=== PATIENT | female | born 1985 | race Two or more races ===

== ENCOUNTER 2016-08-04 06:01 | Day surgery (SDC) | payer OTHER ==
[~2016-08-04 06:01] MED LIST: IV START KIT ONE; LACTATED RINGERS 1,000 ML ONE
[2016-08-04] MEDS ORDERED: MIDAZOLAM HCL 1 MG/ML 2ML VIAL ONE (06:17)
[2016-08-04] MEDS ORDERED: LIDOCAINE 2% (PRES FREE) 5 ML VIAL ONE (06:17)
[2016-08-04] MEDS ORDERED: PROPOFOL 20 ML IV ONE (06:17)
[2016-08-04] MEDS ORDERED: FENTANYL 100 MCG/2 ML VIAL ONE (06:18)
[2016-08-04] MEDS ORDERED: SCOPOLAMINE 1.5 MG/72 HR 1 EACH PATCH TD ONE (07:08)
[2016-08-04] MEDS ORDERED: ONDANSETRON 4 MG/2ML 2 ML VIAL ONE (07:40)
[2016-08-04] MEDS ORDERED: OXYCODONE/ACETAMINOPHEN 5/325 MG TABLET PO PRN (07:47)
[2016-08-04] MEDS ORDERED: PROMETHAZINE HCL 25 MG/ML VIAL IM PRN (07:47)
[2016-08-04] MEDS ORDERED: ATROPINE SULFATE 0.4 MG/1 ML VIAL IV PRN (07:47)
[2016-08-04] MEDS ORDERED: ONDANSETRON 4 MG/2ML 2 ML VIAL IV PRN (07:47)
[2016-08-04] MEDS ORDERED: FENTANYL 100 MCG/2 ML VIAL IV PRN (07:47)
[2016-08-04] MEDS ORDERED: HYDROMORPHONE HCL 1 MG/ML SYRINGE IV PRN (07:47)
[2016-08-04] MEDS ORDERED: MEPERIDINE 25 MG/ML SYRINGE IV PRN (07:47)
[2016-08-04] MEDS ORDERED: IBUPROFEN 800 MG TABLET PO PRN (07:47)
[2016-08-04] MEDS ORDERED: NALOXONE HCL 0.4 MG/ML VIAL IV PRN (07:47)
--- NOTE | 2016-08-04 07:58 | PCMBPN ---
Brief Post Op Note: Date of Procedure: 08/04/16 Start Time: Preoperative Diagnosis: 1. abnormal vaginal bleeding from cervical stump Postoperative Diagnosis: 1. Same Procedure: electrocautery of endocervical canal Surgeon: Marc Aguilera Assist: Anesthesia: general, ms kam Findings: patulous cervix, uterus surgically absent, adnexa negative, vagina healthy, external genitalia healthy Condition: stable Complications: none IV Fluids: mLs of LR Urine Output: 50 mLs Estimated Blood Loss: less than 2cc mLs Tourniquet Time: N/A Specimens: N/A Implants: Drains: N/A patient tolerated procedure well and was returned to recovery room in stable condition.
[2016-08-04] MEDS ORDERED: LACTATED RINGERS 1,000 ML IV SCH ×2 (08:00→15:15)
[2016-08-04] MEDS ORDERED: KETOROLAC TROMETHAMINE 30 MG/ML 1 ML VIAL ONE (08:02)
--- NOTE | 2016-08-04 08:37 | OP ---
Nellie Pop [id number] PREOPERATIVE DIAGNOSIS: Abnormal vaginal bleeding from cervical stump. POSTOPERATIVE DIAGNOSIS: Abnormal vaginal bleeding from cervical stump. TONGUE BINDER: Dr. Marc Jolly PROCEDURE: Electrocautery of endocervical canal. ANESTHESIA: General anesthesia by Ms. Lyon. DESCRIPTION OF PROCEDURE: Dictation begins with the patient under general anesthesia. She was placed in the lithotomy position and the vagina was prepared with Betadine and draped in the usual manner. After a timeout was performed, exam under anesthesia revealed the external genitalia healthy, vagina healthy, cervix was pink and patulous, uterus surgically absent, adnexa negative. A duckbill speculum was inserted into the vagina gently. The anterior lip of the cervix was grasped with a single prong tenaculum. The cervix was sounded to 3 cm. Following this cautery of the endocervical canal was performed using a Bovie with a coag setting at 50 and a blend of 1. The entire endocervical os was cauterized with the Bovie and there was complete hemostasis after the procedure was performed. The single pronged tenaculum was removed. Estimated blood loss during the procedure was less than 2 mL and there was complete hemostasis at the end of the procedure. The duckbill speculum was then removed after complete hemostasis. Sponge and instrument count report is correct. The patient had been catheterized prior to the surgery of 50 mL of clear yellow urine. The patient tolerated the procedure well and was returned to recovery room in stable condition. FINAL DIAGNOSIS: Abnormal vaginal bleeding from cervical stump. Of note, pathology specimen submitted. JOB: [id number]
--- NOTE | 2016-08-04 08:41 | DS ---
Nellie Pop [id number] Nellie Pop is a 31-year-old female admitted with abnormal vaginal bleeding, the source being the cervical stump following previous hysterectomy. She underwent electrocautery of the endocervical os and canal and tolerated the procedure well. She was sent home in good condition and given Percocet as needed and advised office visit in one weeks time. Activities were explained to the patient prior to anesthesia. Also a urine culture will be sent for possible urinary tract infection although, patient is asymptomatic. FINAL DIAGNOSIS: Abnormal vaginal bleeding from cervical stump. JOB: [id number]
[2016-08-04 08:49] LABS: URINE BACTERIA FEW; URINE CRYSTALS MANY CaOx /hpf; URINE WBC 0-1 /hpf
[2016-08-04] MEDS ORDERED: IBUPROFEN 800 MG TABLET ONE (09:17)
[2016-08-04] MEDS ORDERED: LIDOCAINE 1% 2 ML VIAL ID PRN (15:03)
--- NOTE | 2016-08-09 13:22 | HP ---
Nellie Pop : 1985 DATE: 08/03/2016 HISTORY OF PRESENT ILLNESS: Nellie Pop is a 31-year-old female who was admitted for electrocautery of endocervical canal. She had a history of ovarian cysts and had a attempted laparoscopy performed, however, the laparoscope did not visualize the affected areas due to pelvic adhesions. Subsequently she underwent a supracervical hysterectomy. Following the supracervical hysterectomy she has had continued spotting and abnormal bleeding from the cervical stump and for this reason she is admitted for electrocautery of endocervical canal. Risks, reasons, complications, living will, alternatives discussed, failure of surgery to relieve symptoms discussed all in laypersons terms and all questions answered. The other part of the operation at the time of hysterectomy was a left oophorectomy. OB HISTORY: She is a 2, para 2-0-0-2, two vaginal deliveries. [employer]ENDANT HISTORY: Menarche 10 x28 x4. No history of sexually transmitted diseases. PAST MEDICAL HISTORY: Positive for diabetes. She uses metformin and she previously used oral contraceptives. PAST SURGICAL HISTORY: Laparoscopic left salpingo-oophorectomy and then a hysterectomy with a left ovarian cystectomy. SOCIAL HISTORY: Nonsmoker, nondrinker. ALLERGIES: Negative. FAMILY HISTORY: Negative. REVIEW OF SYSTEMS: Positive for just vaginal spotting from the cervical stump and having spotting with intercourse at times. MEDICATIONS: Include: 1. Glimepiride. 2. Lisinopril. 3. Topamax. 4. Tylenol. 5. Citalopram. 6. Atorvastatin. 7. She does monitor her sugars at home with glucometer. PHYSICAL EXAMINATION: GENERAL: Is a healthy female in no acute distress. HEENT: Normal. NECK: Supple. Thyroid not palpable. HEART: Regular sinus rhythm, no murmurs. LUNGS: Clear. ABDOMEN: Benign. PELVIC: Showed the external genitalia healthy. Vagina was healthy. Cervix was present and pink. Uterus was surgically absent. The adnexa were negative. IMPRESSION: Abnormal bleeding from the endocervical canal. PLAN: Electrocautery of the endocervical canal. JOB: [id number]
== END 2016-08-04 10:04 | disposition home or self-care (01) ==
LOC: SDC 06:01
PROVIDERS: ATTEND Obstetrics & Gynecology
PROC: 0W3R7ZZ Control Bleeding in Genitourinary Tract, Via Natural or Artificial Opening (ICD-10-PCS; principal; 2016-08-04)
DX: N93.8 Other specified abnormal uterine and vaginal bleeding (principal); Z90.711 Acquired absence of uterus with remaining cervical stump; E11.9 Type 2 diabetes mellitus without complications; I10 Essential (primary) hypertension; E66.9 Obesity, unspecified; Z68.31 Body mass index [BMI] 31.0-31.9, adult; F41.8 Other specified anxiety disorders; G43.909 Migraine, unspecified, not intractable, without status migrainosus; F51.01 Primary insomnia; N12 Tubulo-interstitial nephritis, not specified as acute or chronic; Z79.84 Long term (current) use of oral hypoglycemic drugs
CPT/HCPCS: 81015; 57510; J3010; A9270 ×2; J1885; J2250; J2405; J7120